=== PATIENT | female | born 1960 | race African-American/Black ===

== ENCOUNTER 2018-06-01 11:35 | Day surgery (SDC) | payer MEDICARE, MEDICAID ==
[~2018-06-01] VITALS: Ht 154.9 cm; Wt 103.0 kg
[~2018-06-01 11:35] MED LIST: ALBU90AE IH; AMLO5TAB88 PO; BECL10.62 IH; FERR325T6 PO; HYDR-2412 PO; HYDR-4005 PO; HYDR12.54 PO; IBUP-2030 PO; MELO15TA13 PO; NAPR-681 PO; NASOI NS
[2018-06-01] MEDS ORDERED: DOXYCYCLINE HYCLATE 100 MG/VIAL IV STA (13:22)
[2018-06-01] MEDS ORDERED: DOXYCYCLINE 100 MG in SODIUM CHLORIDE 0.9% 100 ML IV SCH ×4 (13:30)
[2018-06-01] MEDS ORDERED: CEFAZOLIN SODIUM 1000MG/VIAL ONE (13:36)
[2018-06-01] MEDS ORDERED: NEOSTIGMINE METHYLSULFATE 1MG/ML 10 ML VIAL ONE (13:36)
[2018-06-01] MEDS ORDERED: LIDOCAINE HCL/PF 1% 10 MG/ML 5ML VIAL ONE (13:36)
[2018-06-01] MEDS ORDERED: ROCURONIUM BROMIDE 10MG/ML VIAL 5ML IV ONE (13:36)
[2018-06-01] MEDS ORDERED: GLYCOPYRROLATE 0.2 MG/ML 2ML VIAL ONE (13:36)
[2018-06-01] MEDS ORDERED: PROPOFOL 200MG/20ML VIAL IV ONE (13:36)
[2018-06-01] MEDS ORDERED: SODIUM CHLORIDE 0.9% 10ML VIAL ONE (13:36)
[2018-06-01] MEDS ORDERED: MIDAZOLAM HCL 2 MG/2 ML VIAL ONE (13:36)
[2018-06-01] MEDS ORDERED: EPHEDRINE SULFATE 50MG/ML VIAL ONE (13:36)
[2018-06-01] MEDS ORDERED: FENTANYL CITRATE/PF 50MCG/ML 2ML VIAL ONE (13:36)
[2018-06-01] MEDS ORDERED: SUCCINYLCHOLINE CHLORIDE 200MG/10ML VIAL IV ONE (13:36)
[2018-06-01] MEDS ORDERED: PHENYLEPHRINE HCL 10 MG/ML 1ML (IV VIAL) IV ONE (13:36)
[2018-06-01] MEDS ORDERED: ONDANSETRON HCL 4MG/2ML VIAL ONE (13:37)
[2018-06-01] MEDS ORDERED: METOCLOPRAMIDE HCL 10MG/2ML VIAL ONE (13:37)
[2018-06-01] MEDS ORDERED: KETOROLAC 30MG/ML VIAL ONE (14:05)
[2018-06-01] MEDS ORDERED: SODIUM CHLORIDE 0.9% 1,000 ML IV ONE (15:10)
[2018-06-01] MEDS ORDERED: ONDANSETRON HCL 4MG/2ML VIAL IV PRN (15:15)
[2018-06-01] MEDS ORDERED: MEPERIDINE HCL/PF 25MG/ML CPJ IV PRN (15:15)
[2018-06-01] MEDS ORDERED: IBUPROFEN 600MG TABLET PO NR (15:15)
[2018-06-01] MEDS ORDERED: HYDROMORPHONE HCL/PF 2MG/ML CPJ IV PRN (15:15)
== END 2018-06-01 17:40 | disposition home or self-care (01) ==
LOC: OR 11:35
PROVIDERS: ATTEND Obstetrics & Gynecology
DX: N88.8 Other specified noninflammatory disorders of cervix uteri (principal); N92.0 Excessive and frequent menstruation with regular cycle; I10 Essential (primary) hypertension; J45.909 Unspecified asthma, uncomplicated; E66.9 Obesity, unspecified; Z88.5 Allergy status to narcotic agent; Z90.49 Acquired absence of other specified parts of digestive tract; Z98.51 Tubal ligation status; Z79.899 Other long term (current) drug therapy; Z79.1 Long term (current) use of non-steroidal anti-inflammatories (NSAID)
CPT/HCPCS: 58558; 82962; 88305; A4216; J0330; J0690; J1885; J2250; J2370; J2405; J2710; J2765; J3010; J3490; J7120; J2704; J7050